=== PATIENT | male | born 1960 | race Asian ===

== ENCOUNTER 2016-10-18 08:36 | Inpatient (IN) | payer OTHER, BC ==
[2016-10-18] MEDS ORDERED: Sodium Chloride 0.9% 10 ML Syringe FLUSH PRN ×2 (08:50→08:53)
[2016-10-18] MEDS ORDERED: HYDROmorphone 0.5 MG/0.5 ML Syringe IVPUSH ONE ×3 (08:50→10:45)
[2016-10-18] MEDS ORDERED: Ondansetron 4 MG/2 ML SDV IVPUSH ONE (08:50)
[2016-10-18] MEDS ORDERED: Iopamidol 612 MG/ML 150 ML Bottle IVPUSH ONE (08:53)
[2016-10-18] MEDS ORDERED: Sodium Chloride 0.9% 1,000 ML IV SCH ×4 (09:00→15:30)
--- NOTE | 2016-10-18 09:56 | CT ---
Head CT Technique: Multiple axial sections through the brain were obtained. Intravenous contrast was not utilized. Comparison: No previous intracranial imaging. Findings: Ventricles along with basal cisterns and sulci over the convexities are within normal limits for the patient's age. No abnormal parenchymal densities are seen. No evidence of intracranial hemorrhage. No midline shift or mass effect is seen. Bone window settings were reviewed which show minimal mucosal thickening within the ethmoid and frontal sinuses. No air-fluid levels are seen within the paranasal sinuses. No acute calvarial abnormality is appreciated. Impression: 1. Minimal sinus findings which are felt to be incidental. 2. No acute intracranial abnormality is seen. Diagnostic code #2
--- NOTE | 2016-10-18 09:56 | CT ---
CT cervical spine Technique: Multiple axial sections were obtained from above C1 inferiorly to the top of T2. Reconstructed sagittal and coronal images were reviewed. Comparison: No previous cervical spine imaging. Findings: Mastoid sinuses and middle ear cavities are clear. Posterior skull base appears intact. Mild disc space narrowing is seen at C5-C6. Other disc spaces are preserved. Vertebral body heights are maintained. Mild anterior osteophytes are noted at C2-C3, C4-C5, C5-C6 and T1-T2. Mild scattered degenerative change is seen within the apophyseal joints. Soft tissue air is noted within the upper left chest wall extending into the left side of the neck. Left apical pneumothorax is partially seen. Fractures are noted posteriorly within the first and second left ribs. No fracture is appreciated within the cervical spine. Moderate bilateral neural foraminal stenosis noted at C4-C5. Moderate to severe bilateral neural foraminal stenosis is noted at C5-C6. No bony central canal stenosis is seen. No abnormal subluxation is seen on the reconstructed sagittal images. Degenerative spurring is noted within the uncovertebral joints at C5-C6 on both sides. Impression: 1. Fractures within the posterior left first and second ribs. 2. Soft tissue air within the lateral left chest with left upper lobe pneumothorax being partially seen. 3. Soft tissue air within the left upper chest with air extending into the left side of the neck. 4. No cervical spine fracture is seen. Degenerative change as described above. Diagnostic code #3
--- NOTE | 2016-10-18 10:07 | CT ---
CT chest Technique: Multiple axial sections through the chest were obtained. Intravenous contrast was utilized. Findings: Mediastinum and hilar regions appear within normal limits. No pericardial thickening is seen. Left-sided pneumothorax is seen which measures about 5-10%. Areas of increased density are noted within the left upper chest and within portions of the left lower chest most likely representing combination of atelectasis and pulmonary contusion. Right lung shows mild posterior atelectasis. Fractures are seen within the left first rib and second ribs. Displaced fracture is seen posteriorly within the left third and fourth ribs. Additional fracture is seen within the seventh rib which is nondisplaced. Mildly displaced fracture is noted within the left sixth rib. Additional displaced fracture is noted within the fifth and fourth ribs which occurs more anterior and laterally in location. No right-sided rib fracture is appreciated. Vertebral body heights are maintained within the thoracic spine. Sternum appears intact. Impression: 1. Fractures within the left first, second, third and fourth ribs posteriorly. Additional fractures within the more lateral aspects of the fourth, fifth, sixth and seventh ribs on the left side. 2. Small pneumothorax within the left chest measuring about 5-10%. 3. Areas of pulmonary contusion and atelectasis within left upper chest and left lower chest. Mild posterior atelectasis within the right chest. 4. No additional abnormality is seen on CT study of the chest. Diagnostic code #5 CT abdomen and pelvis Technique: Multiple axial sections were obtained from above the dome of the diaphragm inferiorly through the pubic symphysis. Intravenous contrast was utilized. No oral contrast has been given. Comparison: No previous exam. Findings: Liver shows mild fatty infiltration. No focal abnormality is seen within the liver. Spleen shows a small low-density area measuring 1 cm in size. This most likely represents a pre-existing benign splenic lesion rather than small splenic contusion. Adrenal glands show no nodule. Pancreas is within normal limits. Kidneys show symmetric contrast enhancement without hydronephrosis or mass. Aorta shows no aneurysmal dilatation. No retroperitoneal adenopathy or mesenteric abnormalities are seen. No pelvic mass or adenopathy is seen. Bone window settings were reviewed which shows mild degenerative spurring within the spine. Mild degenerative apophyseal change is seen within the lower lumbar spine. No acute abnormality is seen within the spine or pelvis. Impression: 1. Incidental findings. Nothing acute is appreciated on CT study of the abdomen and pelvis. Diagnostic code #2
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
[2016-10-18] MEDS ORDERED: diphenhydrAMINE 50 MG/ML SDV IVPUSH PRN (10:49)
[2016-10-18] MEDS ORDERED: Ondansetron 4 MG/2 ML SDV IVPUSH PRN (10:49)
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
[2016-10-18] MEDS ORDERED: Ketorolac 15 MG/ML SDV IM SCH (11:00)
[2016-10-18] MEDS: Ketorolac 15 MG/ML SDV IVPUSH SCH ×3 (11:32→22:29)
[2016-10-18] MEDS ORDERED: Sodium Chloride 0.9% 500 ML IV ONE (11:45)
[2016-10-18] MEDS: HYDROmorphone 0.5 MG/0.5 ML Syringe IVPUSH PRN ×2 (15:04→20:28)
--- NOTE | 2016-10-18 15:37 | CR ---
Left shoulder: 3 views of left shoulder were obtained. Comparison: Previous chest CT performed earlier on the same day (09:10 AM). Small calcification is noted anterior to the left shoulder on the CT exam not identified on plain film study but is compatible with calcific tendinitis. No acute fracture, dislocation or other bony abnormality is seen within the left shoulder. Pulmonary contusion is again noted within the left upper chest. Subcutaneous air is again seen within the left chest wall. Left-sided rib fractures are again noted. Left upper lobe pulmonary contusion is seen. Impression: 1. Evidence of calcific tendinitis (on CT exam). 2. No acute abnormality is seen within the left shoulder. 3. Other findings as noted on chest CT are again seen. Diagnostic code #3
[2016-10-18] MEDS ORDERED: Diphtheria,Pertussis(Acell),Tetanus Vaccine 0.5 ML SDV IM ONE (18:07)
--- NOTE | 2016-10-18 19:07 | CR ---
Chest: Frontal view of the chest was obtained. Comparison: No previous chest x-ray, subsequent chest CT is available. Increased density compatible with pulmonary contusion is seen with the left upper chest. Mild atelectasis is noted within the left base. Rib fractures are noted which are better identified on subsequent chest CT. Heart size and mediastinum are normal. Subcutaneous air is seen along the left chest and within the left neck. Impression: 1. Multiple rib fractures are seen but better identified on subsequent chest CT. 2. Mild pulmonary contusion is seen within the left upper lung. 3. Subcutaneous air within the left chest. Diagnostic code #3
--- NOTE | 2016-10-18 19:07 | CR ---
Pelvis: AP view of the pelvis was obtained. Comparison: No previous study. Joint spaces within both hips are maintained. Sacroiliac joints are within normal limits. No fracture or other abnormality is seen. Impression: 1. No abnormality is identified on AP pelvis exam. Diagnostic code #1
[2016-10-18] MEDS: Acetaminophen/oxyCODONE 325-5 MG Tab PO PRN (23:19)
[2016-10-19] MEDS: Pantoprazole 40 MG Tab.CR PO SCH (06:01)
[2016-10-19] MEDS: Ketorolac 15 MG/ML SDV IVPUSH SCH ×4 (06:02→22:02)
--- NOTE | 2016-10-19 08:48 | CR ---
Chest: Portable view of the chest was obtained. Comparison: Previous chest x-ray and chest CT of 10/18/16. Decreased subcutaneous air within the lateral left chest from prior exam is noted. Minimal lucency is seen within left lung apex compatible with minimal pneumothorax. I do not believe that this has increased in size from prior exam. Parenchymal density within the left upper lung compatible with pulmonary contusion is seen. Mild atelectasis is noted within the left lung base as well as right lung base. Left-sided rib fractures are again noted. Impression: 1. Minimal apical pneumothorax which is felt to be without significant change from prior chest CT. 2. Decreased subcutaneous air within the left chest wall. 3. Continuing pulmonary contusion within the left upper lung. Mild increased atelectasis is noted within both lung bases. 4. Bony structures remain stable. Diagnostic code #3
[2016-10-19] MEDS: Acetaminophen/oxyCODONE 325-5 MG Tab PO PRN ×3 (09:18→21:52)
[2016-10-19] MEDS: Polyethylene Glycol 3350 Powder 17 GM Packet PO SCH (09:23)
[2016-10-19] MEDS: Sodium Chloride 0.9% 10 ML Syringe FLUSH PRN (11:21)
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
[2016-10-19] MEDS: Lidocaine 5% 700 MG Patch TOP SCH (15:30)
[2016-10-20] MEDS: HYDROmorphone 0.5 MG/0.5 ML Syringe IVPUSH PRN (00:15)
[2016-10-20] MEDS: Ketorolac 15 MG/ML SDV IVPUSH SCH ×4 (04:35→22:18)
[2016-10-20] MEDS: Pantoprazole 40 MG Tab.CR PO SCH ×2 (04:39→07:00)
[2016-10-20] MEDS: Polyethylene Glycol 3350 Powder 17 GM Packet PO SCH ×2 (08:55→10:45)
[2016-10-20] MEDS: Acetaminophen/oxyCODONE 325-5 MG Tab PO PRN ×2 (08:56→22:20)
[2016-10-20] MEDS: Sodium Chloride 0.9% 10 ML Syringe FLUSH PRN ×2 (10:46→17:50)
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
--- NOTE | 2016-10-20 14:07 | CR ---
Chest: Portable view of the chest was obtained. Comparison: Previous chest x-ray of 10/19/16. Increasing density within left upper chest believed to represent trever pulmonary contusion from early healing. Mild atelectasis noted within the left lung base. Diminished subcutaneous air within the left chest is seen. Stable rib fractures are seen on the left side. Right lung is clear. Heart size is normal. Mediastinum appears within normal limits. No discrete pneumothorax is appreciated on current study. Impression: 1. Improving chest as described above. 2. No definite pneumothorax is seen on current study. Diagnostic code #2
[2016-10-20] MEDS: Lidocaine 5% 700 MG Patch TOP SCH (15:04)
[2016-10-21] MEDS: Ketorolac 15 MG/ML SDV IVPUSH SCH (04:41)
[2016-10-21] MEDS ORDERED: Pantoprazole 40 MG Tab.CR PO SCH (06:00)
[2016-10-21] MEDS: Pantoprazole 40 MG Tab.CR PO SCH (06:03)
[2016-10-21] MEDS: Losartan 100 MG Tab PO SCH (08:36)
[2016-10-21] MEDS: amLODIPine 5 MG Tab PO SCH (08:37)
[2016-10-21] MEDS: Hydrochlorothiazide 12.5 MG Cap PO SCH (08:37)
[2016-10-21] MEDS: Polyethylene Glycol 3350 Powder 17 GM Packet PO SCH (08:37)
[2016-10-21] MEDS ORDERED: Magnesium Hydroxide 400 MG/5 ML Susp 30 ML Cup PO PRN (10:48)
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
[2016-10-21] MEDS ORDERED: Diatrizoate Meglumine/Diatrizoate Sodium 37% 120 ML Bottle PO ONE (13:45)
[2016-10-21] MEDS ORDERED: Iopamidol 755 Mg/ML 100 ML Bottle IVPUSH ONE (13:45)
[2016-10-21] MEDS: Sodium Chloride 0.9% 10 ML Syringe FLUSH PRN (14:30)
--- NOTE | 2016-10-21 15:04 | CT ---
CT chest Technique: Multiple axial sections were obtained through the chest. Intravenous contrast was utilized. Comparison: Previous chest CT dated 10/18/16. Findings: Small left-sided pleural effusion is seen. This is an interval change from prior study. Subcutaneous air is noted within the left chest wall which has slightly diminished from prior exam. Previously described rib fractures again seen 2 of which are displaced which appears fairly stable from prior exam. Very minimal amount of pleural air is noted anteriorly on the left side which has improved. Right lung shows slight atelectasis but is otherwise clear. Mediastinum and hilar regions show no adenopathy. Opacified great vessels appear within normal limits. Mild atelectasis is seen on a compressive basis within the left base as well as mild atelectasis anteriorly. Pulmonary contusion that was seen previously has diminished in size. Impression: 1. Decreased size of pneumothorax with only minimal pleural air remaining. 2. Decreased pulmonary contusion within the left upper lung. 3. Small left-sided pleural effusion as an interval change from previous exam (this does not have Hounsfield unit measurements of blood). 4. Areas of atelectasis within the left base and anteriorly within the left chest and area of pulmonary contusion. 4. Stable left-sided rib fractures. 5. Decreased subcutaneous air within the left chest. Diagnostic code #3 CT abdomen and pelvis Technique: Multiple axial sections were obtained from above the dome of the diaphragm inferiorly through the pubic symphysis. Intravenous and oral contrast was utilized. Delayed images were also obtained through the pelvis. Comparison: Previous abdomen and pelvis CT exam dated 10/18/16. Findings: Liver shows mild fatty infiltration. No focal abnormality is seen within the liver. Spleen is normal. Adrenal glands show no nodule. Pancreas is within normal limits. Kidneys show symmetric contrast enhancement without hydronephrosis or mass. Aorta appears unremarkable. Gallbladder shows no calcified gallstones. No retroperitoneal adenopathy or mesenteric abnormalities are seen. No pelvic mass or adenopathy is seen. No free fluid or inflammatory change is seen within the abdomen or pelvis. No bowel dilatation is seen. Appendix is seen which appears to be normal. Delayed images shows contrast within the distal ureters with no extravasation of contrast. Contrast is seen within the bladder. Bone window settings were reviewed which shows mild degenerative change within the apophyseal joints within the lower lumbar spine. Nothing acute is identified within the lumbar spine or pelvis. Impression: 1. Incidental findings. Nothing acute is seen. No significant change from prior study. Diagnostic code #2
[2016-10-21] MEDS: Lidocaine 5% 700 MG Patch TOP SCH (16:01)
[2016-10-21] MEDS: Acetaminophen 325 MG Tab PO PRN (18:06)
[2016-10-21] MEDS: Acetaminophen/oxyCODONE 325-5 MG Tab PO PRN ×2 (21:55→23:04)
[2016-10-22] MEDS: Pantoprazole 40 MG Tab.CR PO SCH (07:00)
[2016-10-22] MEDS: Acetaminophen 325 MG Tab PO PRN ×2 (09:47→16:02)
[2016-10-22] MEDS: amLODIPine 5 MG Tab PO SCH (09:49)
[2016-10-22] MEDS: Losartan 100 MG Tab PO SCH (09:49)
[2016-10-22] MEDS: Hydrochlorothiazide 12.5 MG Cap PO SCH (09:49)
[2016-10-22] MEDS: Polyethylene Glycol 3350 Powder 17 GM Packet PO SCH (09:49)
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
[2016-10-22] MEDS: Lidocaine 5% 700 MG Patch TOP SCH (14:23)
[2016-10-22] MEDS: Acetaminophen/oxyCODONE 325-5 MG Tab PO PRN (21:25)
[2016-10-23] MEDS: Pantoprazole 40 MG Tab.CR PO SCH (06:38)
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
[2016-10-23] MEDS ORDERED: Diphtheria,Pertussis(Acell),Tetanus Vaccine 0.5 ML SDV IM ONE (08:00)
[2016-10-23] MEDS: amLODIPine 5 MG Tab PO SCH (08:56)
[2016-10-23] MEDS: Polyethylene Glycol 3350 Powder 17 GM Packet PO SCH (08:56)
[2016-10-23] MEDS: Losartan 100 MG Tab PO SCH (08:59)
[2016-10-23] MEDS: Hydrochlorothiazide 12.5 MG Cap PO SCH (08:59)
[2016-10-23] MEDS: Acetaminophen 325 MG Tab PO PRN (08:59)
[2016-10-23 09:02] VITALS: BP 137/77
[2016-10-23] MEDS: Lidocaine 5% 700 MG Patch TOP SCH (09:40)
== END 2016-10-23 10:30 | disposition home or self-care (01) | DRG 184 ==
LOC: JD.ED 08:36 → JD.ICU 10:49 → UNDOADMIN 10:49 → JD.MS 10-20 19:00
PROVIDERS: ADMIT Surgery; ATTEND Surgery
PROC: 3E0234Z Introduction of Serum, Toxoid and Vaccine into Muscle, Percutaneous Approach (ICD-10-PCS; principal; 2016-10-23)
DX: S22.49XA Multiple fractures of ribs, unspecified side, initial encounter for closed fracture (principal); S27.0XXA Traumatic pneumothorax, initial encounter; S27.321A Contusion of lung, unilateral, initial encounter; J90 Pleural effusion, not elsewhere classified; H11.30 Conjunctival hemorrhage, unspecified eye; V89.0XXA Person injured in unspecified motor-vehicle accident, nontraffic, initial encounter; D64.9 Anemia, unspecified; I10 Essential (primary) hypertension; Z79.899 Other long term (current) drug therapy; Z88.8 Allergy status to other drugs, medicaments and biological substances; Z88.0 Allergy status to penicillin; R73.9 Hyperglycemia, unspecified; Z23 Encounter for immunization; D72.829 Elevated white blood cell count, unspecified
CPT/HCPCS: 36415; 70450; 70450-26; 71010; 71010-26; 71260; 71260-26; 72125; 72125-26; 72170; 72170-26; 73030-26-LT; 73030-LT; 74177; 74177-26; 80053; 82962; 83036; 83735; 84100; 84484; 85025; 86850; 86900; 86901; 90715; 93005; 94761; 94762; 96361; 96374; 96375; 96376; 97110-GP; 97116-GP; 97162-GP; 99285; 99285-25; A9270-GY; G0480; J1170; J1885; J2405; J7040; J7050; Q9963; Q9967